=== PATIENT | female | born 1965 | race Caucasian/White ===

== ENCOUNTER → 2025-05-14 09:44 | Outpatient (BNV) | payer OTHER, SELFPAY | PROVIDERS: PCP Internal Medicine; Visit Provider Radiology Diagnostic Radiology | DX: R07.89 Other chest pain (principal) | CPT/HCPCS: 71046 ==

== ENCOUNTER 2025-05-14 10:06 | Emergency (ER) | payer OTHER, SELFPAY ==
--- NOTE | ~2025-05-14 | XR_ITS ---
EXAMINATION: XR CHEST CLINICAL INFORMATION: cp COMPARISON: None available. TECHNIQUE: 2 views of the chest were obtained. FINDINGS: Anterior cervical discectomy and fusion has been performed at C6-7. Lungs are clear and well aerated. Heart size is within normal limits. There is no pleural effusion. XR/XR chest 2V IMPRESSION: No acute disease Electronically signed by: Carlos Bates MD 05/14/2025 10:45 AM EDT
--- NOTE | 2025-05-14 10:08 | ECG_ITS ---
Test Reason : chest pain Blood Pressure : */* mmHG Vent. Rate : 55 BPM Atrial Rate : 55 BPM P-R Int : 138 ms QRS Dur : 78 ms QT Int : 452 ms P-R-T Axes : 62 14 46 degrees QTcB Int : 432 ms Sinus bradycardia Otherwise normal ECG No previous ECGs available Referred By: Generic ED Physician Electronically Signed By: GENET SOLOMON MD
[2025-05-14 10:16] VITALS: BP 181/79; PULSE 63; RESP 16; TEMP 36.4; O2SAT 100; BMI 22.1
[2025-05-14 10:40] LABS: MANUAL DIFF FLAG NO
[2025-05-14 10:42] LABS: Hematocrit 42.1 % (37.0-47.0); Hemoglobin 14.2 g/dl (12.0-16.0); Imm Gran Abs Auto 0.02 X10*3/uL (0.00-0.03); Imm Gran Pct Auto 0.3 % (0.0-0.4); Lymphocytes Absolute Auto 1.6 X10*3/uL (1.2-4.9); Mean Corpuscular HGB Conc 33.7 g/dl (31.0-35.0); Mean Corpuscular Hemoglobin 32.0 pg (27.0-33.0); Mean Corpuscular Volume 94.8 fL (80.0-98.0); NRBC Abs Auto 0.000 X10*3/uL (0.0-0.012); NRBC Pct Auto 0.0 /100WBC (0.0-0.2); Platelet Count 263 X10*3/uL (160-400); Red Blood Count 4.44 X10*6/uL (4.20-5.50); White Blood Count 7.2 X10*3/uL (4.8-10.8)
[2025-05-14 10:58] LABS: Alanine Aminotransferase 26 U/L (0-31); Albumin Level 4.6 g/dL (3.5-5.0); Alkaline Phosphatase 94 U/L (39-117); Anion Gap 14 (12-20); Aspartate Amino Transferase 31 U/L (5-31); Blood Urea Nitrogen 9 mg/dL (9-16); Calcium 10.1 mg/dL (8.4-10.2); Carbon Dioxide 26 mmol/L (22-29); Chloride 106 mmol/L (96-108); Creatinine Clr Calc Pharmacy 73.3; Estimated Glomerular Filt Rate > 60; Potassium 4.6 mmol/L (3.3-5.1); Sodium 141 mmol/L (135-145); Total Protein 7.5 g/dL (6.5-8.0)
--- OUTSIDE RECORDS SUMMARY | 2025-05-14 11:02 | XMS_ITS | Encounter Summary ---
Author Organization [facility] Address [address] [place] [id number] Phone Care Team Providers Care Manager Of Change Name Role Phone Carlos Sullivan MD Primary Care Provider [phone] Encounter Details Date Type Department Care Team (Late st Contact Info) Description 10/28/2019 Procedure [facility] [address] [place] [address] Social History Tobacco Use Types Packs/Day Years Used Date Smoking Tobacco: Never Assessed Comments Unknown Sex and Gender Information Value Date Recorded Sex Assigned at Not on file Legal Sex Female 2:32 PM EST Gender Identity Not on file Sexual Orientation Not on file documented as of this encounter Plan of Treatment Not on file documented as of this encounter Visit Diagnoses Not on filedocumented in this encounter Care Teams Manager Of Change Relationship Specialty Start Date End Date Carlos Sullivan MD [address] [place] [id number] [email or web address] PCP - General Internal Medicine 10/02/19 documented as of this encounter Additional Source Comments The information contained in this document represents components of the legal health record. It is not the complete legal health record.[facility]
--- OUTSIDE RECORDS SUMMARY | 2025-05-14 11:02 | XMS_ITS | Encounter Summary ---
Author Organization [facility] Address [address] [place] [address] Care Team Providers Care Lead Presser Name Role Phone Unavailable Primary Care Provider Unavailabl e Reason for Visit * Reason Onset Date Comments Vomiting 05/14/2025 Encounter Details Date Type Department Care Team (Late st Contact Info) Description 05/14/2025 Telephone Gastroenterology - [address] [place] [address] Corby Gomez MD [address] [place] [address] Vomiting Social History Tobacco Use Types Packs/Day Years Used Date Smoking Tobacco: Never Assessed Comments Unknown Sex and Gender Information Value Date Recorded Sex Assigned at Not on file Legal Sex Female 4:08 AM EST Gender Identity Not on file Sexual Orientation Not on file documented as of this encounter Progress Notes * Nuvia Infante - 05/14/2025 8:46 AM EDT Which provider do you see here? : Patricia What symptoms are you having? : Pt has been vomiting and having abd pain When did symptoms start? : 3 weeks Have you been seen for this issue before? : documented in this encounter Plan of Treatment Not on file documented as of this encounter Visit Diagnoses Not on filedocumented in this encounter
--- OUTSIDE RECORDS SUMMARY | 2025-05-14 11:02 | XMS_ITS | Patient Health Record ---
Author Organization [facility] Address [address] [id number] Care Team Providers Care Finished Garment Inspector Name Role Phone [facility] Primary Care Provider Allergies Allergen (clinical drug ingredient) Drug/Non Drug Allergy documented on EMR Reaction Allergy Type Onset Date Status penicillin V Penicillin V Potassium Hives Drug Allergy Active Results Component Value Reference Range Notes Urinalysis, Complete-[id number] Reviewed date:10/08/2024 05:47:35 PM Interpretation: Performing Lab:[facility] [place], [address] [facility], Phone - [phone], Director - Joy Notes/Report: Specific [place] 1.006 1.005-1.030 pH 7.0 5.0-7.5 Urine-Color Yellow Yellow Appearance Clear Clear WBC Esterase Negative Negative Protein Negative Negative/Trace Glucose Negative Negative Ketones Negative Negative Occult Blood Negative Negative Bilirubin Negative Negative Urobilinogen,Semi-Qn 0.2 0.2-1.0 mg/dL Nitrite, Urine Negative Negative Microscopic Examination Micr oscopic follows if indicated. Microscopic Examination See below: Micr oscopic was indicated and was performed. WBC None seen 0 - 5 /hpf RBC None seen 0 - 2 /hpf Epithelial Cells (non renal) None seen 0 - 10 /hpf Casts None seen None seen /lpf Bacteria None seen None seen/Few CBC With Differential/Platel et-[id number] Reviewed date:10/08/2024 05:47:35 PM Interpretation: Performing Lab:[facility] [place], [address], [place], Phone - [phone], Director - Joy Notes/Report: WBC 7.5 3.4-10.8 x10E3/uL RBC 4.29 3.77-5.28 x10E6/uL Hemoglobin 14.0 11.1-15.9 g/dL Hematocrit 41.9 34.0-46.6 % MCV 98 79-97 fL MCH 32.6 26.6-33.0 pg MCHC 33.4 31.5-35.7 g/dL RDW 12.1 11.7-15.4 % Platelets 326 150-450 x10E3/uL Neutrophils 60 Not Estab. % Lymphs 25 Not Estab. % Monocytes 10 Not Estab. % Eos 4 Not Estab. % Basos 1 Not Estab. % Neutrophils (Absolute) 4.5 1.4-7.0 x10E3/uL Lymphs (Absolute) 1.9 0.7-3.1 x10E3/uL Monocytes(Absolute) 0.7 0.1-0.9 x10E3/uL Eos (Absolute) 0.3 0.0-0.4 x10E3/uL Baso (Absolute) 0.1 0.0-0.2 x10E3/uL Immature Granulocytes 0 Not Estab. % Immature Grans (Abs) 0.0 0.0-0.1 x10E3/uL Vitamin D, 84-[id number] Reviewed date:10/08/2024 05:47:35 PM Interpretation: Performing Lab:[facility], [address] [place] [address], [place], Phone - [phone], Director - Rachel Notes/Report: Vitamin D, 25-Hydroxy 20.5 30.0-100.0 ng/mL Vitamin D deficiency has been defined by the [place] of [employer] and an Endocrine Society practice guideline as a level of serum 25-OH vitamin D less than 20 ng/mL (1,2). The Endocrine Society went on to further define vitamin D insufficiency as a level between 21 and 29 ng/mL (2). 1. IOM ([place] of [employer]). 2010. Dietary reference intakes for calcium and D. [place]: The National Academies Press. 2. Tamika MF, Annette MENSAH, Hermila STOCKTON, et al. Evaluation, treatment, and prevention of vitamin D deficiency: an Endocrine Society clinical practice guideline. JCEM. 2010; 96(7):1911-30. Comp. Metabolic Panel (14)-3 [id number] Reviewed date:10/08/2024 05:47:35 PM Interpretation: Performing Lab:[facility], [address] [facility], [place], Phone - [phone], Director - Rachel Notes/Report: Glucose 100 70-99 mg/dL BUN 9 6-24 mg/dL Creatinine 0.76 0.57-1.00 mg/dL eGFR 92 >59 mL/min/1.73 BUN/Creatinine Ratio 12 9-23 Sodium 141 134-144 mmol/L Potassium 4.2 3.5-5.2 mmol/L Chloride 102 96-106 mmol/L Carbon Dioxide, Total 23 20-29 mmol/L Calcium 10.0 8.7-10.2 mg/dL Protein, Total 7.5 6.0-8.5 g/dL Albumin 4.5 3.8-4.9 g/dL Globulin, Total 3.0 1.5-4.5 g/dL Bilirubin, Total <0.2 0.0-1.2 mg/dL Alkaline Phosphatase 98 44-121 IU/L AST (SGOT) 29 0-40 IU/L ALT (SGPT) 20 0-32 IU/L LP+Non-HDL Cholesterol-[id number] 5 Reviewed date:10/08/2024 05:47:35 PM Interpretation: Performing Lab:[facility], [address] [facility], [place], Phone - [phone], Director - Rachel Notes/Report: Cholesterol, Total 269 100-199 mg/dL Triglycerides 238 0-149 mg/dL HDL Cholesterol 65 >39 mg/dL VLDL Cholesterol Patrick 44 5-40 mg/dL LDL Chol Calc ([facility]) 160 0-99 mg/dL Non-HDL Cholesterol 204 0-129 mg/dL HCV Antibody-[id number] Reviewed date:10/08/2024 05:47:35 PM Interpretation: Performing Lab:[facility] [place], [address] [facility], [place], Phone - [phone], Director - Rachel Notes/Report: Hep C Virus Ab Non Reactive Non Reactive HCV antibody alone does not differentiate between previously resolved infection and active infection. Equivocal and Reactive HCV antibody results should be followed up with an HCV RNA test to support the diagnosis of active HCV infection. XR Hand Right (Not yet revie wed by provider) Interpretation: Performing Lab: Notes/Report: Original Report PROCEDURE: XR RIGHT HAND 3 views INDICATION: Throbbing pain in digit of right hand for three weeks, right hand contusion. TECHNIQUE: Three views of the right hand. COMPARISON: None available. FINDINGS: There is no displaced fracture. There are chronic changes to the distal interphalangeal joints of the fourth and fifth fingers. The alignment is anatomic. There is amorphous calcification adjacent to the head of the fifth metacarpal. IMPRESSION: No acute osseous abnormalities. Wander Orta MD Signed by Wander Orta MD Read by: WANDER ORTA M.D. Reviewed and Electronically Signed by: WANDER ORTA M.D. Reason For Referral No Information Medications Medication SIG (Take, Route, Frequency, Duration) Notes Start Date End Date Status KlonoPIN 1 MG 1 tablet Orally Once a day 10/15/2024 Not-Taking Escitalopram Oxalate 5 MG 1 tablet Orall y Once a day; Duration: 90 days Active Omeprazole 20 MG TAKE 1 CAPSULE BY [facility] EVERY DAY (30 MINUTES BEFORE MORNING MEAL); Duration: 90 Active Immunizations Vaccine Route Administration Date Status Comme nts [id number] Afluria-Single Unknown 09/02/2020 Administered [id number] Vaccine Unknown 08/28/2021 Administere d *Tdap IM Intramuscular 07/30/2016 Administered Social History Tobacco Use: Social History Observation Description Date Details (start date - stop date) Former Smoker NA - 09/23/2022 AUDIT-C (Standard) Question Answer Notes Did you have a drink contain ing alcohol in the past year? Yes How often did you have six o r more drinks on one occasion in the past year? Never (0 point) How many drinks did you have on a typical day when you were drinking in the past year? 1 or 2 drinks (0 point) How often did you have a dri nk containing alcohol in the past year? 2 to 3 times a week (3 points) Points 3 Interpretation Positive Tobacco Control (Standard) Question Answer Notes Tobacco use: Former smoker When did you stop smoking? 09/23/2022 How long has it been since y ou last smoked? 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) Active confirmed Problem Nicotine dependence (75564010) Nicotine dependence, cigarettes, with other nicotine-induced disorders (F17.218) Active confirmed Problem Generalized anxiety disorder (56846405) Generalized anxiety disorder (F41.1) Active confirmed Problem Brachial plexus disorder (2088968) Brachial plexus disorders (G54.0) Active confirmed Problem Carpal tunnel syndrome (21741892) Carpal tunnel syndrome, right upper limb (G56.01) Active confirmed Problem Cholesteatoma of middle ear (09298793) Cholesteatoma of tympanum, 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) Active confirmed Problem Raynaud's disease (109765271) Raynaud's syndrome without gangrene (I73.00) Active confirmed Problem Menopause (371740494) Menopausal and female climacteric states (N95.1) Active confirmed Problem Acute stress reaction (60540301) Acute stress reaction (F43.0) Problem resolved confirmed Problem Allergic contact dermatitis of left upper eyelid (disorder) (278640088645743) Allergic dermatitis of left upper eyelid (H01.114) Problem resolved confirmed Problem Glossodynia (68979207) Glossodynia (K14.6) Problem resolved confirmed Problem Strain of muscle of right shoulder (4911364160919040 5) Strain of muscle(s) and tendon(s) of the rotator cuff of right shoulder, initial encounter (S46.011A) Problem resolved confirmed Problem Body mass index 30.00 to 34.99 (665680816691185) Body mass index (BMI) 34.0-34.9, adult (Z68.34) Problem resolved confirmed Problem Body mass index 30+ - obesity (685657900) Body mass index [BMI] 30.0-30.9, adult (Z68.30) Problem resolved confirmed Vital Signs Heart Rate 86 /min 04/05/2025 Temperature 96.8 degrees Fahrenheit 04/05/2025 Blood pressure diastolic 56 mm Hg 10/06/2024 Oximetry 97 % 04/05/2025 Height 63 in 04/05/2025 Blood pressure systolic 116 mm Hg 10/06/2024 Weight 148 lbs 10/06/2024 BMI 26.21 kg/m2 10/06/2024 Encounters Encounter Location Date Provider Diagnosis Kassie Sullivan MD [address] [id number] 09/28/2024 K[facility]ie Sullivan Unspecified viral infection characterized by skin and mucous membrane lesions B09 Kassie Sullivan MD [address] [id number] 10/06/2024 [facility] Encounter for genera l adult medical examination without abnormal findings Z00.00 ; Generalized anxiety disorder F41.1 ; Brachial plexus disorders G54.0 ; Raynaud's syndrome without gangrene I73.00 ; Nicotine dependence, cigarettes, in remission F17.211 ; Vitamin D deficiency, unspecified E55.9 ; Encounter for screening for malignant neoplasm of colon Z12.11 ; Encounter for screening mammogram for malignant neoplasm of breast Z12.31 ; Encounter for screening for osteoporosis Z13.820 ; Encounter for screening for cardiovascular disorders Z13.6 ; Encounter for immunization Z23 ; Encounter for antibody response examination Z01.84 ; Encounter for screening for other viral diseases Z11.59 and Unspecified viral infection characterized by skin and mucous membrane lesions B09 Kassie Sullivan MD [address] [id number] 04/05/2025 Kassie Sullivan Contusion of right hand, initial encounter S60.221A Kassie Sullivan MD [address] [id number] 01/07/2025 Kassie Sullivan MD [address] [id number] 10/15/2024 Kassie Sullivan Assessments Encounter Date Diagnosis (ICD Code) Assessment Notes Treatment Notes Treatment Clinical Notes Section Notes 10/06/2024 Generalized anxiety disorder (ICD-10 - F41.1) She is not taking any medical therapy and she feels fine. 10/06/2024 Encounter for general adult medical examination without abnormal findings (ICD-10 - Z00.00) General healthcare up-to-date. Check routine labs 09/28/2024 Unspecified viral infection characterized by skin and mucous membrane lesions (ICD-10 - B09) She has a rash that has been present for about 2 weeks. Around that time she developed a upper respiratory infection and was treated with antibiotics at a walk-in center. This is most likely a viral exanthem. Her rash is on her arms legs back and anterior chest and abdomen. There are few lesions on her face as well. At this point this will go away on its own and recommend symptom control with antipruritic therapy. She has tried xczx-ghd-kjetwrg therapies without any efficacy. If prescription therapy does not help then she could consider prednisone therapy 04/05/2025 Contusion of right hand, initial encounter (ICD-10 - S60.221A) About 2 weeks ago she may have caught her hand in a child's gait. It is not clear what kind of injury she had. She has persistent pain and this may be a extensor tendon issue with the possibility of a bone contusion or fracture. Can check x-ray. If this is normal then she would need an MRI but she is unable to do this due to foreign body. Recommend a finger splint for now. Even if this was broken she feels that she is not going to pursue any further treatment. Splinting may be the easiest option for her. This may take 6 to 8 weeks to fully recover. 10/06/2024 Brachial plexus disorders (ICD-10 - G54.0) Continues to have ongoing pain in the right neck and shoulder and arm. This is despite surgical intervention. 10/06/2024 Raynaud's syndrome without gangrene (ICD-10 - I73.00) Stable at present without complications 10/06/2024 Nicotine dependence, cigarettes, in remission (ICD-10 - F17.211) Remains in remission 10/06/2024 Vitamin D deficiency, unspecified (ICD-10 - E55.9) Stable on prior labs reviewed. Recheck status and would consider vitamin D supplementation for goal level of 30+ 10/06/2024 Encounter for screening for malignant neoplasm of colon (ICD-10 - Z12.11) Up-to-date on colon cancer screening 10/06/2024 Encounter for screening mammogram for malignant neoplasm of breast (ICD-10 - Z12.31) Up-to-date on breast cancer screening. She has a mammogram pending in about a month 10/06/2024 Encounter for screening for osteoporosis (ICD-10 - Z13.820) Up-to-date on osteoporosis screening 10/06/2024 Encounter for screening for cardiovascular disorders (ICD-10 - Z13.6) Blood pressure stable. Can check for comorbidity of hyperlipidemia and hyperglycemia to further assess risk 10/06/2024 Encounter for immunization (ICD-10 - Z23) Vaccines up-to-date 10/06/2024 Encounter for antibody response examination (ICD-10 - Z01.84) Titers have been checked in the past and there is immunity to rubeola 10/06/2024 Encounter for screening for other viral diseases (ICD-10 - Z11.59) Can screen for hepatitis C as per general recommendation 10/06/2024 Unspecified viral infection characterized by skin and mucous membrane lesions (ICD-10 - B09) She continues to have a rash it slowly improving and resolving but she continues to have significant mount of itching that hydroxyzine did not control. At this point can try short-term prednisone for symptom relief. If not improving then would consider biopsy. 09/28/2024 Other This note was created with voice dictation recognition software and may contain errors of grammar and syntax. 10/06/2024 Other This note was created with voice dictation recognition software and may contain errors of grammar and syntax. Also labs were reviewed with patient. 04/05/2025 Other This note was created with voice dictation recognition software and may contain errors of grammar and syntax. Also labs were reviewed with patient. Plan Of Treatment Pending Test Test Name Order Date EMG/NCV 08/24/2020 25OH VITAMIN D 09/05/2021 25OH VITAMIN D 09/12/2022 COMPLETE CBC WITH DIFF 09/12/2022 COMPLETE CBC WITH DIFF 09/05/2021 COMPLETE URINALYSIS 09/05/2021 COMPLETE URINALYSIS 09/12/2022 COMPREHENSIVE METABOLIC PANEL 09/12/2022 COMPREHENSIVE METABOLIC PANEL 09/05/2021 LIPID PANEL W REFLEX TO DLDL 09/05/2021 LIPID PANEL W REFLEX TO DLDL 09/12/2022 NABILA 09/05/2021 MM Digital Mammo Screening 09/24/2023 ANTI-HEPATITIS C W/RFLX HCV QNT 09/12/20 22 XR Hand Right 04/05/2025 Future Test Test Name Order Date COMPREHENSIVE METABOLIC PANEL 01/30/2017 HEMOGLOBIN A1C,DIAGNOSTIC 01/30/2017 LIPID PANEL 01/30/2017 Next Appt Details Provider Name:Kassie Sullivan , 10/19/2025 09:00:00 AM, [address] [place] [address], [address], [place], [place], [phone], Insurance Providers Payer Name Payer Address Payer Phone Subscriber Number Group Number Insured Name Patient Relationship to Insured Coverage Start Date Coverage End Date [employer] [address] [place] [address] [id number] Yung Puente Self - patient is the insured 3 Medical (General) History Medical History History ICD Code Cholesteatoma of tympanum, right ear H71 .11 Mixed hyperlipidemia E78.2 Allergic dermatitis of left upper eyelid H01.114 Strain of muscle(s) and tend on(s) of the rotator cuff of right shoulder, initial encounter S46.011A Acute stress reaction F43.0 Nicotine dependence, cigarettes, in gracy ssion F17.211 Menopausal and female climacteric states N95.1 Body mass index (BMI) 34.0-34.9, adult ( resolved 09/24/2023) Allergic dermatitis of left upper eyelid (resolved 09/24/2023) Strain of muscle(s) and tend on(s) of the rotator cuff of right shoulder, initial encounter (resolved 09/24/2023) Acute stress reaction (resolved 09/24/19 24) Glossodynia (resolved 09/24/2023) Body mass index [BMI] 30.0-30.9, adult ( resolved 09/24/2023) Surgical History Surgery Date(Month/Year) Cholecystectomy cervical fusion tympanoplasty Rib Resection, RT 02/2020 Hospitalization History Reason Date(Month/Year) Rib Resection 02/2020
[2025-05-14 11:06] LABS: Troponin-I High Sensitivity < 2.7 ng/L (<3.5-17.0)
[2025-05-14 11:22] LABS: Resp Syncy Virus RNA Qual PCR NEGATIVE (Negative); SARS COV2 PCR INHOUSE NEGATIVE (Negative)
--- NOTE | 2025-05-14 11:32 | ED.GENADULT ---
[facility] - General Adult General Chief complaint: General Medical Stated complaint: Chest Pain Rapid Breathing Nausea Time Seen by Provider: 05/14/25 11:04 Source: patient Mode of arrival: ambulatory Limitations: no limitations History of Present Illness ED Provider: Dr. Thomas [facility] narrative: 59-year-old female history of hyperlipidemia, tobacco use presented hospital today for evaluation of chest pain. Patient states she has been feeling chest pressure since Saturday. She has been having episode of epigastric pain. Patient is also having symptoms of nausea and vomiting associated with this. However she noticed at this sternal chest pain is pressure-like in nature. It has been constant. Does not radiate anywhere. She did have a brief episode 3 weeks ago however is subsided on its own. No history of stress test in the past. She does have EGD with Dr. Gomez that was negative in the past Patient did mentioned that she is diagnosed with crest syndrome. She does endorse family history of cardiac problems. Related Data Previous Rx's ?Medication ?Instructions ?Recorded famotidine 20 mg tablet (Pepcid) 20 mg PO DAILY 14 days #14 tabs 05/14/25 ondansetron 4 mg disintegrating 4 mg PO Q8H 4 days #12 tabs 05/14/25 tablet sucralfate 1 gram tablet (Carafate) 1 g PO BID 7 days #14 tabs 05/14/25 Allergies Allergy/AdvReac Type Severity Reaction Status Date / Time penicillin V Allergy Unknown hives Verified 05/14/25 10:19 Review of Systems Review of Systems: Pertinent review of systems as mentioned in HPI. All other system otherwise negative. [facility] Past Medical History [facility] Narrative: Medical history as mentioned in [facility] Social History Social History Advance Directives: No Advance Directives Information Provided: Yes Physical Exam ED Exam Exam: General: Pleasant, no distress, interacting appropriately Head: Normacephalic, atraumatic ENT: oral mucosa moist, neck supple, no tracheal deviation Cardiovascular: regular rate, regular rhythm, no murmurs, rubbing, gallops, no subcutaneous emphysema on chest Respiratory: CTAB, no wheeze, rales, rhonchi Gastrointestinal: Soft, non distended, epigastric tenderness on palpation Neurological: Awake and alert, no facial droop noted Skin: Warm and dry Psychiatric: Appropriate mood and thoughts Vital Signs: Vital Signs - 24 hr 05/14/25 10:16 Temperature 97.6 F Pulse Rate 63 Respiratory Rate 16 Blood Pressure 181/79 H Pulse Oximetry 100 Oxygen Delivery Method Room Air BMI result Body Mass Index 22.1 Medications Administered Discontinued Medications Generic Name Dose Route Start Last Admin Trade Name [place] PRN Reason Stop Dose Admin Al Hydroxide/Mg Hydroxide 30 ml 05/14/25 11:31 05/14/25 12:36 Magnesium Hydrox/Alum Hydrox 30 Ml Oral.Susp PO 05/14/25 11:32 30 ml ONCE ONE Administration Famotidine 20 mg 05/14/25 11:20 05/14/25 12:06 Famotidine/Pf 20 Mg/2 Ml Vial IVPUSH 05/14/25 11:21 20 mg ONCE ONE Administration Sodium Chloride 500 mls @ 500 mls/hr 05/14/25 11:30 05/14/25 12:11 Ns IV 05/14/25 12:29 500 mls/hr .Q1H J LUIS Administration Lidocaine HCl 15 ml 05/14/25 11:31 05/14/25 12:37 Lidocaine Hcl Viscous 2 % 15 Ml Solution MUCOUS MEM 05/14/25 11:32 15 ml ONCE ONE Administration Ondansetron HCl 4 mg 05/14/25 11:20 05/14/25 12:09 Ondansetron Hcl 4 Mg/2 Ml Vial IVPUSH 05/14/25 11:21 4 mg ONCE ONE Administration Medical Decision Making Medical Decision Making MDM Narrative: 59-year-old female history of hyperlipidemia, crest syndrome, tobacco use disorder presented hospital today for evaluation of sternal chest pressure. Given patient's age and risk factors were pursue ACS workup. Including CBC chemistry troponin. Chest x-ray will be obtained EKG will be obtained I did review patient's EKG shows sinus bradycardia. No sign of STEMI. I am suspicious for gastric reflux. We will plan to give patient some IV Pepcid 500 cc IV fluid. We will plan to give patient has some viscous lidocaine and Maalox to see if this will help alleviate the pain. IV Zofran be given for her nausea as well. Review patient's lab work. First troponin is negative. We will plan to repeat a 2nd troponin. Patient's 2nd troponin is negative at this time. Patient states she had immediate improvement after GI cocktail and IV Pepcid. She is no longer having the heavy chest pressure sensation. I suspect this is likely secondary to gastric reflux. We will plan to discharge patient home with Carafate, Pepcid, Zofran to take. Bowel precaution provided the patient as well. Encouraged the patient to follow up outpatient with her primary care doctor about stress test. Patient agrees and understands this plan all questions are addressed. Differential Diagnosis Differential Diagnoses: The differential diagnosis associated with the presentation includes ACS, pneumothorax, COPD, STEMI, gastritis, GERD Lab Data MDM Lab Attestation statement: I reviewed the patient's lab results. 05/14/25 10:36 05/14/25 10:36 Labs: Lab Results 05/14/25 05/14/25 Range/Units 10:36 12:12 WBC 7.2 (4.8-10.8) X10*3/uL RBC 4.44 (4.20-5.50) X10*6/uL Hgb 14.2 (12.0-16.0) g/dl Hct 42.1 (37.0-47.0) % MCV 94.8 (80.0-98.0) fL MCH 32.0 (27.0-33.0) pg MCHC 33.7 (31.0-35.0) g/dl RDW 13.1 (11.0-16.0) % Plt Count 263 (160-400) X10*3/uL MPV 9.5 (9.4-12.3) fL Immature Gran % (Auto) 0.3 (0.0-0.4) % Neut % (Auto) 65.9 (45-73) % Lymph % (Auto) 21.8 (20-40) % [place] % (Auto) 8.8 (2-11) % Eos % (Auto) 2.8 (0-4) % Baso % (Auto) 0.4 (0-2) % Lymph # (Auto) 1.6 (1.2-4.9) X10*3/uL [place] # (Auto) 0.6 (0.1-1.2) X10*3/uL Eos # (Auto) 0.2 (0.0-0.4) X10*3/uL Baso # (Auto) 0.0 (0.0-0.2) X10*3/uL Abs Immat Gran (auto) 0.02 (0.00-0.03) X10*3/uL Absolute Neuts (auto) 4.7 (2.0-8.3) x10*3/uL Absolute Nucleated RBC 0.000 (0.0-0.012) X10*3/uL Nucleated RBC % (auto) 0.0 (0.0-0.2) /100WBC Sodium 141 (135-145) mmol/L Potassium 4.6 (3.3-5.1) mmol/L Chloride 106 (96-108) mmol/L Carbon Dioxide 26 (22-29) mmol/L Anion Gap 14 (12-20) BUN 9 (9-16) mg/dL Creatinine 0.70 (0.5-1.4) mg/dL Estim Creat Clear Calc 73.3 Estimated GFR > 60 Random Glucose 103 (60-115) mg/dL Calcium 10.1 (8.4-10.2) mg/dL Total Bilirubin 0.4 (0.0-1.0) mg/dL AST 31 (5-31) U/L ALT 26 (0-31) U/L Alkaline Phosphatase 94 (39-117) U/L Troponin I High Sens < 2.7 3.3 (<3.5-17.0) ng/L Total Protein 7.5 (6.5-8.0) g/dL Albumin 4.6 (3.5-5.0) g/dL Influenza Type A (PCR) NEGATIVE (Negative) Influenza Type B (PCR) NEGATIVE (Negative) RSV RNA Qual (PCR) NEGATIVE (Negative) SARS-CoV-2 RNA (RT-PCR) NEGATIVE (Negative) Independent Interpretation I performed an independent interpretation of an: EKG and Plain X-Ray Radiology Impression Discussion of test interpretation with radiology: I have reviewed the radiologist's reading. Prescription Management carafate, pepcid , Discharge Plan Discharge Clinical Impression: Gastric reflux, Chest pain, atypical Patient Disposition: Home, Self-Care Instructions: GERD (Gastroesophageal Reflux Disease) (ED) Additional Instructions: Ask your primary care doctor about a stress test. Follow up with your GI doctor for your reflux. Prescriptions: New sucralfate [Carafate] 1 gram tablet 1 g PO BID 7 Days Qty: 14 0RF famotidine [Pepcid] 20 mg tablet 20 mg PO DAILY 14 Days Qty: 14 0RF ondansetron 4 mg tablet,disintegrating 4 mg PO Q8H 4 Days Qty: 12 0RF Print Language: Hungarian
[2025-05-14 12:36] LABS: Troponin-I High Sensitivity 3.3 ng/L (<3.5-17.0)
[2025-05-14] MEDS: Magnesium Hydrox/Alum Hydrox 30 ML ORAL.SUSP PO (12:36)
[2025-05-14] MEDS: Lidocaine HCl Viscous 2 % 15 ML SOLUTION MUCOUS MEM (12:37)
[2025-05-14 12:58] VITALS: BP 146/48; PULSE 69; RESP 18
[2025-05-14 13:17] VITALS: BP 146/48; PULSE 69; RESP 18; TEMP 37.1
== END 2025-05-14 13:17 | disposition home or self-care (01) ==
PROVIDERS: Emergency Provider Student in an Organized Health Care Education/Training Program; PCP Internal Medicine
DX: K21.9 Gastro-esophageal reflux disease without esophagitis (principal); R07.89 Other chest pain; R00.1 Bradycardia, unspecified; R11.0 Nausea; Z87.891 Personal history of nicotine dependence; Z79.899 Other long term (current) drug therapy; Z03.818 Encounter for observation for suspected exposure to other biological agents ruled out
CPT/HCPCS: 36415; 71046; 80053; 84484; 85025; 87637; 93005; 96361; 96374; 96375; 99284; J1308; J2405

== ENCOUNTER → 2025-05-14 10:08 | Outpatient (BNV) | payer OTHER, SELFPAY | PROVIDERS: Emergency Provider Student in an Organized Health Care Education/Training Program; PCP Internal Medicine; Visit Provider Internal Medicine Cardiovascular Disease | DX: R00.1 Bradycardia, unspecified (principal) | CPT/HCPCS: 93010 ==